=== PATIENT | male | born 1975 | race Two or more races ===

== ENCOUNTER 2016-10-28 11:34 | Emergency (ER) | payer MEDICARE, MEDICAID ==
[~2016-10-28] VITALS: Ht 180.3 cm; Wt 96.6 kg
[2016-10-28 12:43] VITALS: BP 172/82
[2016-10-28] MEDS ORDERED: HYDROcodone-ACET 10/325MG TAB PO ONE (13:15)
[2016-10-28] MEDS ORDERED: cefTRIAXone SOD 1,000 MG VL IM ONE (13:15)
[2016-10-28] MEDS ORDERED: TETANUS-DIPTH-ACEL PERTUSSIS 0.5ML SYRG IM ONE (13:15)
== END 2016-10-28 14:33 | disposition home or self-care (01) ==
LOC: ER 11:34
DX: L03.012 Cellulitis of left finger (principal); Z23 Encounter for immunization
CPT/HCPCS: 10060; 73140; 90471; 90715; 96372; 99284; J0696

== ENCOUNTER 2018-04-03 01:29 | Emergency (ER) | payer MEDICARE, MEDICAID ==
[~2018-04-03] VITALS: Ht 180.3 cm; Wt 95.3 kg
[2018-04-03 03:59] VITALS: BP 154/74
== END 2018-04-03 04:24 | disposition home or self-care (01) ==
LOC: ER 01:29
DX: S90.111A Contusion of right great toe without damage to nail, initial encounter (principal); W22.8XXA Striking against or struck by other objects, initial encounter; Y93.89 Activity, other specified; Y99.8 Other external cause status; Y92.89 Other specified places as the place of occurrence of the external cause
CPT/HCPCS: 73630

== ENCOUNTER 2019-06-18 08:44 | Emergency (ER) | payer MEDICAID, MEDICARE, OTHER ==
[~2019-06-18] VITALS: Ht 175.3 cm; Wt 113.4 kg
[2019-06-18] MEDS ORDERED: ACETAMINOPHEN 325 MG TAB PO ONE (09:00)
[2019-06-18] MEDS ORDERED: SODIUM CHLORIDE 0.9% 1,000 ML IV ONE ×2 (09:01)
[2019-06-18 09:54] LABS: Basophils # (auto) 0 uL; Basophils % (auto) 0.6 % (0.0-2.0); Eosinophils # (auto) 0 uL; Hematocrit 45.8 % (41.0-53.0); Hemoglobin 16.1 g/dL (13.5-17.5); Lymphocytes % (auto) 13.5 % (10.0-50.0); Mean Corpuscular Hemoglobin 30.8 pg (28.0-32.0); Mean Corpuscular Hgb Conc. 35.1 g/dL (32.0-36.0); Mean Corpuscular Volume 87.9 fL (80.0-100.0); Monocytes # (auto) 0.7 uL; Monocytes % (auto) 9.9 % (0.0-12.0); Neutrophils # (auto) 5.6 uL; Nucleated Red Blood Cells % 0.1 %; Platelet Count (auto) 102 10^3/uL (140-450); Red Blood Cells 5.21 10^6/uL (4.5-5.90); White Blood Cell 7.4 10^3/uL (4.4-10.8)
[2019-06-18 10:20] LABS: Albumin 3.8 g/dL (3.4-5.0); Potassium 4.1 mmol/L (3.5-5.1)
[2019-06-18 10:23] LABS: BUN/Creatinine Ratio 18.3; Bilirubin, Total 1.1 mg/dL (0.2-1.0); Total Protein 8.5 g/dL (6.4-8.2)
[2019-06-18 11:23] LABS: Urine Bacteria NONE SEEN /hpf (None Seen); Urine Blood Negative /uL (Negative); Urine Mucus FEW (None Seen); Urine Specific Gravity 1.034 (1.001-1.035); Urine WBC 1 /hpf (0 - 3)
[2019-06-18 13:21] VITALS: BP 139/95
== END 2019-06-18 13:36 | disposition home or self-care (01) ==
LOC: ER 08:44 → EDBD 08:44 → ER 13:36
DX: R50.9 Fever, unspecified (principal); R00.0 Tachycardia, unspecified; R51 Headache
CPT/HCPCS: 36415; 71045; 80053; 81001; 84484; 85025; 87804; 99284; J7030